=== PATIENT | female | born 1980 | race Caucasian/White ===

== ENCOUNTER 2025-07-24 06:12 | Day surgery (SDC) | payer OTHER, SELFPAY ==
[2025-07-24 06:30] VITALS: BMI 22.8
[2025-07-24 06:50] VITALS: BP 126/85; PULSE 76; RESP 16; TEMP 37.1; O2SAT 97
[2025-07-24] MEDS: ETHYL CHLORIDE 1 APPLICATION 1 APPLIC TOPICAL (06:52)
[2025-07-24] MEDS: BUPIVACAINE 0.5% 30 ML INJECTION (06:52)
--- NOTE | 2025-07-24 06:55 | SUR.PREOP ---
SAME DAY SURGERY LOCAL INJECTION SITE VERIFICATION WAS PERFORMED BY SURGEON/PA AND PATIENT PRIOR TO LOCAL ANESTHETIC BEING INJECTED TO OPERATIVE SITE.
[2025-07-24 07:15] VITALS: BP 117/69; PULSE 76; RESP 16; O2SAT 98
[2025-07-24 07:20] VITALS: BP 128/72; PULSE 77; RESP 16; O2SAT 98
[2025-07-24 07:25] VITALS: BP 132/77; PULSE 76; RESP 16; O2SAT 98
[2025-07-24 07:30] VITALS: BP 122/73; PULSE 68; RESP 16; O2SAT 98
[2025-07-24] MEDS: BACITRACIN OINTMENT BULK TUBE 1 APPLIC TOPICAL (07:31)
[2025-07-24 07:35] VITALS: BP 126/86; PULSE 70; RESP 16; O2SAT 98
--- NOTE | 2025-07-24 07:41 | PM.ORPRC ---
Procedure Note Date of procedure: 07/24/25 Procedure: PREOPERATIVE DIAGNOSIS: 1. Right thumb flexor tenosynovitis - trigger thumb POSTOPERATIVE DIAGNOSIS: 1. Right thumb flexor tenosynovitis - trigger thumb PROCEDURE: 1. Right thumb flexor tendon sheath open release (A1 syed) SURGEON: Jacinto Lopez MD. [employer]EVEL [employer] DEVELOPER: USMAN Cisneros ANESTHESIA: Local anesthetic 4ml via 50:50 mixture of 1% Lidocaine with epi and 0.5% marcaine plain EBL: 2mL IMPLANTS: None TOURNIQUET: None COMPLICATIONS: None evident INDICATIONS: The patient is a pleasant 45-year-old female who has experienced right thumb catching/triggering for number of months. It has progressively gotten worse. Given the failure of nonoperative management, and how this affects daily life, surgery was recommended. DESCRIPTION OF PROCEDURE: Following a thorough discussion of risks, benefits, and alternatives consent was obtained and the operative digit(s) was marked. The patient was brought to the operating room and placed supine on the operating table. Local anesthesia induction was undertaken in preop holding. No antibiotics were administered as this was planned to be a local case only. Proper time-out was performed identifying proper patient, site, and procedure. The operative extremity was prepped and draped in the appropriate sterile fashion using ChloraPrep. An incision was made on the palmar surface of the hand overlying the MCP joint region of the appropriate digit(s) respecting the palmar creases being cautious not to cross these perpendicularly. Sharp incision through the skin, and blunt dissection through subcutaneous tissue allowing protection of crossing neurologic structures. The A1 syed was visualized directly. It was incised sharply with a 15 blade. It was released completely from its distal to proximal extent under direct visualization. The tendon was inspected and found to be mildly striated consistent with some friction. Otherwise, it was intact. The tendon was removed out of the wound, and further inspected. The patient was asked to manually flex and extend the digits and showed no further catching. The catching, which was visualized initially, was no longer evident with reproduction of a manual fist and relaxation. Closure was performed with 4-O nylon in interrupted fashion. Soft dressings were applied, and the patient was transferred to the recovery room in stable condition. PLAN: 1. Encourage elevation of the operative extremity. 2. Range of motion of the fingers and hand/wrist as tolerated. 3. Ibuprofen/acetaminophen and/or oxycodone as needed for pain control. 4. Follow up with PA visit in 12-16 days for wound check and suture removal.
== END 2025-07-24 07:53 | disposition home or self-care (01) ==
LOC: OR 06:14
PROVIDERS: Visit Provider Orthopaedic Surgery Sports Medicine
PROC: (CPT 26055; principal; 2025-07-24 07:15)
DX: M65.311 Trigger thumb, right thumb (principal); M65.841 Other synovitis and tenosynovitis, right hand
CPT/HCPCS: 26055; J0665